=== PATIENT | female | born 1960 | race Caucasian/White ===

== ENCOUNTER 2021-11-06 20:01 | Inpatient (IN) ==
[2021-11-06] MEDS ORDERED: SODIUM CHLORIDE 0.9% 1000ML 1,000 ML IV ONE (20:21)
--- NOTE | 2021-11-06 20:29 | Emergency Department Note ---
Impression & Plan Neutropenia, Thrombocytopenia, Elevated liver enzymes, Flu-like symptoms ED Provider Note NAME: CARMEN SEVILLA AGE: 61 SEX: F : 1960 ARRIVES VIA: Walk-In INFORMANT: [Patient] ED PROVIDER(S): [Ronan Wu MD] CHIEF COMPLAINT: Fever HISTORY OF PRESENT ILLNESS: The patient is a 61-year-old female whose had 5 days of symptoms. She began noticing chills and body aches and a fever of 101-102. She has had a bit of a scratchy throat, no stuffy nose. No shortness of breath or cough. No abdominal pain or urinary complaints. There has been no rash. The patient did take a COVID test that was negative. She had a chest x-ray rate that was negative. She had blood work done today and was told that her white count was low, she was referred to the ER for evaluation. Patient has no history of a recent tick bite. She was prescribed a Z-Beau yesterday, she has taken 2 days of this medication. She has been using Tylenol for her fever. REVIEW OF SYSTEMS: See HPI for pertinent positives and negatives. A total of ten systems were reviewed and were otherwise negative. PMHx/PSHx: See Below SOCIAL HISTORY: See Below. PHYSICAL EXAM: GENERAL: Patient is in no acute distress. HEENT: No acute trauma, normocephalic atraumatic, mucous membranes moist, no nasal congestion, no scleral icterus. NECK: No stridor, no adenopathy, no meningismus, trachea is midline. LUNGS: Clear to auscultation bilaterally, no wheeze, no rhonchi, breath sounds equal. HEART: Without murmurs gallops or rubs, regular rate and rhythm. ABDOMEN: Soft, nontender, bowel sounds positive, no peritonitis. EXTREMITIES: No cyanosis or edema, full range of motion of all the joints without pain or difficulty, no signs for acute trauma. NEUROLOGIC: Oriented x 3, no acute motor or sensory deficits, no focal weakness. SKIN: No rash, no jaundice, no diaphoresis. DIFFERENTIAL DIAGNOSIS: Generalized viral illness, COVID-19, pneumonia, UTI, electrolyte imbalance, anemia, Lyme disease, tickborne illness, malignancy, among others EMERGENCY DEPARTMENT COURSE/PROCEDURES: MEDICAL DECISION MAKING: There is a neutropenia with an ANC of 0.53. Total white count was 1.27. A very mild anemia was noted. Platelet count was low at 82. Potassium somewhat low at 3.1, no renal failure. AST and ALT were both elevated, the bilirubin was normal. Patient appeared to be in a euthyroid state. Respiratory bio fire testing was completely negative. Blood cultures are pending. Anaplasmosis and Babesia smears were negative. I did review the patient's testing performed as an outpatient. Her Lyme disease test was equivocally positive for IgM, negative for IgG. Her urinalysis showed contamination, no infection. Her chest x-ray was clear. She did have anaplasmosis and Babesia testing sent to a reference lab--results pending. The patient presents with flulike symptoms. She is neutropenic and thro mbocytopenic. Here in the ED she received IV saline for hydration, she was given IV doxycycline for antibiotic coverage for the possibility of a tickborne disease. I spoke with hematology, Dr. Tyler. The patient should be hospitalized for further work-up and observation. Viral illness, bone marrow failure, tickborne disease are all possibilities. I spoke with the patient and case loader operator. The on-call hospitalist was consulted. Past Med/Surg History Medical History Asthma Menopause Surgical History H/O hysterectomy with oophorectomy History of cholecystectomy History of tonsillectomy Family History (Updated 01/27/19 @ 15:33 by Fay King LPN) Sister Ulcerative colitis Aunt Crohn's disease Grandmother Stroke Father Myocardial infarction Social History Smoking Status: Never smoker Hx Alcohol Use: Yes (occasionally ) Alcohol type: wine Hx Substance Use: No Preferred Language: Setswana Visual Impairment: No Limitations Hearing Ability: Normal marital status: Current Living Situation: Spouse current occupational status: employed current occupation: [employer] Feels Safe at Home: Yes Childhood Exposure to Second-Hand Smoke: Yes caffeine: Yes (coffee - one cup/day ) Dental Care, Regularly: Yes Physical Activity Frequency: 3-4 Times per Week Physical Activity Frequency Comment: walking Seatbelt Use: always Sunscreen Use: Yes Allergies Allergies Allergy/AdvReac Type Severity Reaction Status Date / Time Penicillins Allergy Verified 02/08/21 15:48 Home Meds Previous Rx's Medication Instructions Recorded calcium carbonate 600 mg-vitamin 1 tab PO BID #180 tabs 12/14/18 D3 5 mcg (200 unit) tablet ferrous sulfate 325 mg (65 mg 325 mg PO DAILY #90 tabs 12/14/18 iron) tablet loratadine 10 mg tablet 10 mg PO DAILY #90 tabs 12/14/18 omega-3 fatty acids 1,250 mg 1,250 mg PO DAILY #90 caps 12/14/18 capsule albuterol sulfate 90 mcg/actuation 2 puffs inhalation Q4H PRN 06/20/19 aerosol inhaler shortness of breath or wheezing #18 grams azithromycin 250 mg tablet See Rx Instructions PO .COMPLEX #6 11/05/21 tabs Results & Data (ED) Vital Signs Vital Signs - 24 hr 11/06/21 20:03 11/06/21 21:44 Temperature 36.7 C Temperature Source Temporal Artery Scan Pulse Rate 80 Pulse Rate [Finger] 65 Respiratory Rate 20 17 Respiratory Effort / Characteristics Non-Labored Spontaneous Non-Labored Spontaneous Respiratory Depth Normal Normal Respiratory Pattern Regular Blood Pressure 121/76 Blood Pressure [Left Arm] 99/62 L Blood Pressure Mean 91 Blood Pressure Mean [Left Arm] 74 Pulse Oximetry 98 98 Oxygen Delivery Method Room Air Room Air Sepsis Recent Fever Within 48 Hours No Sepsis New/Unexplained Change in Mental Status No Sepsis Action Taken by Nursing No Action Required Home Medications Current Medication List: was personally reviewed by me Laboratory Data Attestation: I reviewed the patient's lab results. Result diagrams: 11/06/21 20:30 11/06/21 20:30 Lab Results 11/06/21 11/06/21 11/06/21 Range/Units 20:30 20:30 20:30 WBC 1.27 L (4.8-10.8) K/ul RBC 3.72 L (3.93-5.22) M/uL Hgb 11.2 L (12.0-16.0) g/dl Hct 31.5 L (34.1-44.9) % MCV 84.7 (80.0-100.0) fL MCH 30.1 (25.0-34.0) pg MCHC 35.6 (32.0-36.0) g/dL RDW Std Deviation 35.8 L (36.4-46.3) fL RDW Coeff of Samantha 11.6 (11.5-14.5) % Plt Count 82 L (130-400) K/uL MPV 11.8 (9.4-12.3) fL Immature Gran % (Auto) 1.6 % Neut % (Auto) 41.7 % Lymph % (Auto) 44.1 % Woodson % (Auto) 11.8 % Eos % (Auto) 0.0 % Baso % (Auto) 0.8 % Neut # (Auto) 0.53 L* (1.4-6.5) K/uL Lymph # (Auto) 0.56 L (1.2-3.4) K/uL Woodson # (Auto) 0.15 L (0.24-0.82) K/uL Eos # (Auto) 0.00 (0-0.50) K/uL Baso # (Auto) 0.01 (0-0.2) K/uL Immature Gran # (Auto) 0.02 (0.00-0.02) K/uL Platelet Estimate Decreased L (Normal) Giant Platelets 1+ Sodium 140 (136-145) mmol/L Potassium 3.1 L (3.5-5.1) mmol/L Chloride 106 (98-107) mmol/L Carbon Dioxide 24 (21-32) mmol/L Anion Gap 10 (3-11) BUN 11 (6-23) mg/dl Creatinine 0.55 L (0.6-1.2) mg/dl Est Cr Clr Drug Dosing 85.3 ml/min Est GFR ( Amer) 116.5 ml/min Est GFR (Non-Af Amer) 100.5 ml/min BUN/Creatinine Ratio 20.0 (10-20) Glucose 97 (70-99(Fasting)) mg/dl Calcium 8.4 L (8.5-10.1) mg/dl Total Bilirubin 0.6 (0.2-1.0) mg/dl AST 153 H (13-39) U/L ALT 136 H (7-52) U/L Alkaline Phosphatase 86 (34-104) U/L Total Protein 6.5 (6.0-8.3) gm/dl Albumin 3.9 (3.4-5.0) gm/dl Globulin 2.6 (2.5-4.0) gm/dl Albumin/Globulin Ratio 1.5 (0.9-2) TSH (0.300-4.500) uIu/ml Adenovirus (PCR) (NotDetected) Anaplasma Smear See Comment Babesia Smear See Comment B. pertussis DNA (PCR) (NotDetected) B.parapertussis DNA PCR (NotDetected) C. pneumoniae DNA (PCR) (NotDetected) Coronavirus OC43 (PCR) (NotDetected) Coronavirus HKU1 (PCR) (NotDetected) Coronavirus 229E (PCR) (NotDetected) SARS-CoV-2 (PCR) (NotDetected) Coronavirus NL63 (PCR) (NotDetected) Human Metapneumovir PCR (NotDetected) Influenza Type A (PCR) (NotDetected) Influenza Type B (PCR) (NotDetected) M. pneumoniae (PCR) (NotDetected) Parainfluenza 1 (PCR) (NotDetected) Parainfluenza 2 (PCR) (NotDetected) Parainfluenza 3 (PCR) (NotDetected) Parainfluenza 4 (PCR) (NotDetected) RSV (PCR) (NotDetected) Entero/Rhino (PCR) (NotDetected) 11/06/21 11/06/21 Range/Units 20:30 20:42 WBC (4.8-10.8) K/ul RBC (3.93-5.22) M/uL Hgb (12.0-16.0) g/dl Hct (34.1-44.9) % MCV (80.0-100.0) fL MCH (25.0-34.0) pg MCHC (32.0-36.0) g/dL RDW Std Deviation (36.4-46.3) fL RDW Coeff of Samantha (11.5-14.5) % Plt Count (130-400) K/uL MPV (9.4-12.3) fL Immature Gran % (Auto) % Neut % (Auto) % Lymph % (Auto) % Woodson % (Auto) % Eos % (Auto) % Baso % (Auto) % Neut # (Auto) (1.4-6.5) K/uL Lymph # (Auto) (1.2-3.4) K/uL Woodson # (Auto) (0.24-0.82) K/uL Eos # (Auto) (0-0.50) K/uL Baso # (Auto) (0-0.2) K/uL Immature Gran # (Auto) (0.00-0.02) K/uL Platelet Estimate (Normal) Giant Platelets Sodium (136-145) mmol/L Potassium (3.5-5.1) mmol/L Chloride (98-107) mmol/L Carbon Dioxide (21-32) mmol/L Anion Gap (3-11) BUN (6-23) mg/dl Creatinine (0.6-1.2) mg/dl Est Cr Clr Drug Dosing ml/min Est GFR ( Amer) ml/min Est GFR (Non-Af Amer) ml/min BUN/Creatinine Ratio (10-20) Glucose (70-99(Fasting)) mg/dl Calcium (8.5-10.1) mg/dl Total Bilirubin (0.2-1.0) mg/dl AST (13-39) U/L ALT (7-52) U/L Alkaline Phosphatase (34-104) U/L Total Protein (6.0-8.3) gm/dl Albumin (3.4-5.0) gm/dl Globulin (2.5-4.0) gm/dl Albumin/Globulin Ratio (0.9-2) TSH 1.710 (0.300-4.500) uIu/ml Adenovirus (PCR) Not Detected (NotDetected) Anaplasma Smear Babesia Smear B. pertussis DNA (PCR) Not Detected (NotDetected) B.parapertussis DNA PCR Not Detected (NotDetected) C. pneumoniae DNA (PCR) Not Detected (NotDetected) Coronavirus OC43 (PCR) Not Detected (NotDetected) Coronavirus HKU1 (PCR) Not Detected (NotDetected) Coronavirus 229E (PCR) Not Detected (NotDetected) SARS-CoV-2 (PCR) Not Detected (NotDetected) Coronavirus NL63 (PCR) Not Detected (NotDetected) Human Metapneumovir PCR Not Detected (NotDetected) Influenza Type A (PCR) Not Detected (NotDetected) Influenza Type B (PCR) Not Detected (NotDetected) M. pneumoniae (PCR) Not Detected (NotDetected) Parainfluenza 1 (PCR) Not Detected (NotDetected) Parainfluenza 2 (PCR) Not Detected (NotDetected) Parainfluenza 3 (PCR) Not Detected (NotDetected) Parainfluenza 4 (PCR) Not Detected (NotDetected) RSV (PCR) Not Detected (NotDetected) Entero/Rhino (PCR) Not Detected (NotDetected) Administered Medications Discontinued Medications Sodium Chloride (Nss 1000ml) 1,000 mls @ 999 mls/hr IV .Q1H1M ONE Stop: 11/06/21 21:21 Last Infusion: 11/06/21 21:59 Dose: 0 mls/hr Documented By: Admin: 11/06/21 20:40 Dose: 999 mls/hr Documented By: SONIA Discharge Plan Visit Data Chief Complaint: Fever Stated Complaint: FEVER, DR REF OVER ED Provider: Ronan Wu Discharge Problem: Neutropenia, Thrombocytopenia, Elevated liver enzymes, Flu-like symptoms Patient Disposition: Admitted As Inpatient Condition: Fair Forms Stand Alone Forms: [facility] Prescriptions Prescriptions: No Action albuterol sulfate 90 mcg/actuation HFA aerosol inhaler 2 puffs inhalation Q4H PRN (Reason: shortness of breath or wheezing) Qty: 18 11RF azithromycin 250 mg tablet See Rx Instructions PO .COMPLEX Qty: 6 0RF Rx Instructions: For 250 mg dose pack: take 500 mg today (day 1), then 250 mg for 4 days (days 2-5) PO calcium carbonate-vitamin D3 600 mg(1,500mg) -200 unit tablet 1 tab PO BID Qty: 180 3RF ferrous sulfate 325 mg (65 mg iron) tablet 325 mg PO DAILY Qty: 90 3RF loratadine 10 mg tablet 10 mg PO DAILY Qty: 90 3RF omega-3 fatty acids 1,250 mg capsule 1,250 mg PO DAILY Qty: 90 3RF Referrals Referrals: Chilango Oropeza DO [Primary Care Provider] - : Neutropenia Qualifiers: Neutropenia type: unspecified Qualified Code(s): D70.9 - Neutropenia, unspecified
[2021-11-06 21:27] LABS: Basophils # (auto) 0.01 K/uL (0-0.2); Basophils % (auto) 0.8 %; Giant Platelets 1+; Hematocrit (blood only) 31.5 % (34.1-44.9); Hemoglobin 11.2 g/dl (12.0-16.0); Immature Granulocytes # (auto) 0.02 K/uL (0.00-0.02); Immature Granulocytes % (auto) 1.6 %; Lymphocytes # (auto) 0.56 K/uL (1.2-3.4); Lymphocytes % (auto) 44.1 %; Mean Corpuscular Hemoglobin 30.1 pg (25.0-34.0); Mean Corpuscular Hgb Conc 35.6 g/dL (32.0-36.0); Mean Corpuscular Volume 84.7 fL (80.0-100.0); Mean Platelet Volume 11.8 fL (9.4-12.3); Monocytes # (auto) 0.15 K/uL (0.24-0.82); Monocytes % (auto) 11.8 %; Neutrophils # (auto) 0.53 K/uL (1.4-6.5); Neutrophils % (auto) 41.7 %; Platelet Count 82 K/uL (130-400); Platelet Estimate Decreased (Normal); RDW Coefficient of Variation 11.6 % (11.5-14.5); RDW Standard Deviation 35.8 fL (36.4-46.3); Red Blood Count 3.72 M/uL (3.93-5.22); White Blood Count 1.27 K/ul (4.8-10.8)
[2021-11-06 21:29] LABS: Albumin Globulin Ratio 1.5 (0.9-2); Albumin Level 3.9 gm/dl (3.4-5.0); Bilirubin,Total 0.6 mg/dl (0.2-1.0); Calcium 8.4 mg/dl (8.5-10.1); Creatinine Clr Calc Pharmacy 85.3 ml/min; Est GFR (African American) 116.5 ml/min; Est GFR (Non-African American) 100.5 ml/min; Globulin 2.6 gm/dl (2.5-4.0); Potassium 3.1 mmol/L (3.5-5.1); Total Protein 6.5 gm/dl (6.0-8.3)
[2021-11-06 21:41] LABS: Adenovirus PCR Not Detected (NotDetected); Bordetella parapertussis PCR Not Detected (NotDetected); Bordetella pertussis PCR Not Detected (NotDetected); Chlamydia pneumoniae PCR Not Detected (NotDetected); Coronavirus 229E PCR Not Detected (NotDetected); Coronavirus CoV-2 (COVID19)PCR Not Detected (NotDetected); Coronavirus HKU1 PCR Not Detected (NotDetected); Coronavirus NL63 PCR Not Detected (NotDetected); Coronavirus OC43PCR Not Detected (NotDetected); Human Metapneumovirus PCR Not Detected (NotDetected); Influenza A PCR Not Detected (NotDetected); Influenza B PCR Not Detected (NotDetected); Mycoplasma pneumoniae PCR Not Detected (NotDetected); Parainfluenza Virus 1 PCR Not Detected (NotDetected); Parainfluenza Virus 2 PCR Not Detected (NotDetected); Parainfluenza Virus 3 PCR Not Detected (NotDetected); Parainfluenza Virus 4 PCR Not Detected (NotDetected); Respiratory Syncytial VirusPCR Not Detected (NotDetected); Rhinovirus/Enterovirus PCR Not Detected (NotDetected)
[2021-11-06] MEDS ORDERED: DOXYCYCLINE HYCLATE 100 MG in DEXTROSE 5% 100 ML IV STA (21:56)
--- NOTE | 2021-11-06 22:17 | History & Physical Report ---
Date of Service November 06, 2021 Assessment & Plan (1) Flu-like symptoms: Plan: 61yo female with a history of asthma presents with a five-day history of fever, chills, muscle aches, and headache, who was then found with pancytopenia, transaminitis, and hypokalemia. Moderate neutropenia, moderate thrombocytopenia, mild anemia Symptoms and labs suspicious for tickborne vs viral illness, though differential includes malignancy, others; unfortunately, no prior labs for comparison; no signs/symptoms of active bleeding ANC 529 CXR negative, ESR wnl, no signs or symptoms of active bleeding; Lyme IgM equivocal, Lyme IgG pending, babesia PCR negative, anaplasma smear negative, covid negative Pending labs: blood culture, peripheral smear, procalcitonin, hepatitis panel, Lyme IgG, B12, folate, copper, serum iron, transferrin, A1c, lipid profile Hematology consulted, recommendations appreciated Due to high suspicion for tickborne illness, continue empiric doxycycline started in the ED; Babesia PCR negative, will hold off on adding atovaquone at this time LR @ 80mL/hr (x1 bag ordered) APAP 1000mg q8h prn fever or pain Home ferrous sulfate changed from daily to q48hr Trend daily CBC, CMP, PT/INR, magnesium, phosphorous Hypokalemia Potassium on admission 3.1 EKG pending Will replete with KCl 20mEq PO q2h (x4 doses) with repeat BMP in AM Transaminitis Admission labs notable for elevated AST (153) and ALT (136); Tbili and alk phos wnl; no abdominal tenderness on exam, no recent abdominal pain, nausea, vomiting, or diarrhea Suspect secondary to tickborne vs viral illness RUQ ultrasound ordered Trend daily CMP Asthma, seasonal allergies Well-controlled; patient has not needed her albuterol inhaler in months Continue home loratidine, albuterol prn SOB/wheezing ordered FEN: regular diet, LR @ 80mL/hr (x1 bag ordered) Code status: full code DVT ppx: SCDs Consults: hematology Dispo: med/surg (2) Pancytopenia: (3) Fever: (4) Elevated liver enzymes: (5) Hypokalemia: (6) Asthma: History of Present Illness Primary Care Provider: Chilango Oropeza DO 61yo female with a history of asthma presents with a five-day history of fever, chills, muscle aches, and headache. Symptoms began gradually. Patient has had an intermittent fever which resolves with tylenol; Tmax 102.8. Patient saw her PCP two days ago (on 11/04) for the above symptoms; PCP ordered a covid test, and when that was negative, ordered a CXR which was also negative. Patient was prescribed azithromycin due to suspicion for atypical pneumonia, of which she has taken 500mg yesterday and 250mg this morning. Symptoms have not improved. Outpatient labs obtained earlier in the day were notable for leukopenia (1.52), mild anemia (11.9), and thrombocytopenia (77); patient was referred to the ED as a result. Patient notes her symptoms are relatively unchanged from the past few days. Headache is mild, currently only a 2/10 to 3/10. Patient denies vision changes, CP, palpitations, SOB, edema, abdominal pain, nausea, vomiting, dysuria, hematochezia, lightheadedness, dizziness, numbness, tingling, or other symptoms. Denies recent illness prior to the past week, denies recent travel. Denies known tick bites, though [place] and has had some possible exposures over the past few weeks. Denies unintentional weight loss. Patient does report a lifetime history of easy bruising, but no history of [id number] bleeding. No personal history of malignancy, though patient does note a family history of multiple myeloma (father), and an aunt with "a cancer of the lymph nodes"; no other family history of malignancy. Patient suspects her mother might have rheumatoid arthritis but is unaware of any other family history of autoimmune conditions. Patient drinks alcohol 2-3 times per month, about two glasses of wine each time. Patient is a never-smoker and denies other recreational substance use. Denies herbal supplement use. Upon arrival to the ED, vitals were stable, patient was afebrile, and SpO2 was adequate on room air. Initial labs were notable for moderate leukopenia (1.27), moderate neutropenia (ANC 529), mild anemia (11.2), thrombocytopenia (82), hypokalemia (3.1), and elevations in AST (153) and ALT (136). Serum magnesium, Tbili, alk phos, INR, ESR, and TSH all normal. In the ED, patient was given NSS bolu 1L (x1) and started on empiric doxycycline. Surrogate decision-maker in case of an emergency: Sohail Vaughan (cell: [phone]) Allergies Allergy/AdvReac Type Severity Reaction Status Date / Time Penicillins Allergy Unknown Verified 11/06/21 23:09 Home Medications Medication Instructions Recorded Confirmed Type ferrous sulfate 325 mg (65 mg 325 mg PO DAILY #90 tabs 12/14/18 11/06/21 Rx iron) tablet loratadine 10 mg tablet 10 mg PO DAILY #90 tabs 12/14/18 11/06/21 Rx azithromycin 250 mg tablet See Rx Instructions PO .COMPLEX #6 11/05/21 11/06/21 Rx tabs acetaminophen 500 mg tablet 1,000 mg PO Q6 PRN Fever 11/06/21 11/06/21 History (Tylenol Extra Strength) albuterol sulfate 90 mcg/actuation 2 puff inhalation Q6H PRN 11/06/21 11/06/21 History aerosol inhaler (Ventolin HFA) Shortness Of Breath Or Wheezing ascorbic acid (vitamin C) 250 mg 500 mg PO DAILY 11/06/21 11/06/21 History tablet (Vitamin C) calcium carbonate 600 mg-vitamin 1 tab PO DAILY 11/06/21 11/06/21 History D3 5 mcg (200 unit) tablet multivitamin 1 tab PO DAILY 11/06/21 11/06/21 History omega-3 fatty acids 1,250 mg 2,500 mg PO QAM 11/06/21 11/06/21 History capsule Past Med/Surg History Medical History Asthma Menopause Surgical History H/O hysterectomy with oophorectomy History of cholecystectomy History of tonsillectomy Family History (Updated 01/27/19 @ 15:33 by Fay King LPN) Sister Ulcerative colitis Aunt Crohn's disease Grandmother Stroke Father Myocardial infarction Social History Smoking Status: Never smoker Second Hand Exposure: No; Do You Dip or Chew Tobacco: No; Tobacco Cessation Education Requested by Patient: No Hx Alcohol Use: Yes Alcohol type: wine Hx Substance Use: No Preferred Language: Ukrainian Communication Ability: Effective Visual Impairment: No Limitations Hearing Ability: Normal Quality Process Auditor Required: No Beliefs That Will Affect Care: None marital status: Current Living Situation: Spouse current occupational status: employed current occupation: [employer] Other Information That Helps Us Care for You: No Feels Safe at Home: Yes Safety Concerns: Feels Safe At This Time Childhood Exposure to Second-Hand Smoke: Yes caffeine: Yes (coffee - one cup/day ) Dental Care, Regularly: Yes Physical Activity Frequency: 3-4 Times per Week Physical Activity Frequency Comment: walking Seatbelt Use: always Sunscreen Use: Yes Assistive Devices: None Physical Exam Physical Exam: Constitutional: well-appearing, no acute distress HEENT: NCAT, no conjunctival injection, no scleral icterus, MMM CV: regular rhythm, no murmur appreciated, extremities well-perfused, no LE edema Resp: CTABL, no wheezes/rales/rhonchi appreciated, no increased work of breathing GI: soft, nondistended, nontender, BS normoactive Skin: 6cm x 6cm ecchymosis appreciated on medial left lower extremity; no petechiae or purpura appreciated Neuro: alert, oriented, no focal neurologic deficit appreciated Results & Data Results & Data ([facility]) Vital Signs (Past 12 Hours) Vital Signs Temp Pulse Pulse Resp BP BP Pulse Ox 11/06/21 21:44 65 17 99/62 L 98 11/06/21 20:03 36.7 C 80 20 121/76 98 O2 Del Method 11/06/21 21:44 Room Air 11/06/21 20:03 Room Air Supervising Physician Co-Signing Physician Notes Attending addendum: I have physically seen this patient, have supervised the medical residents activities, and agree with the H&P unless as otherwise noted. Assessment and Plan: Neutropenic fever- Unclear etiology at this time Outpatient work-up: Lyme IgM equivocal, Lyme IgG pending, Babesia PCR negative, anaplasmosis smear negative. COVID-19 negative We will treat empirically with ceftriaxone IV and doxycycline IV Pending laboratories to be followed: Blood culture, peripheral smear, procalcitonin, hepatitis panel, Lyme IgG, B12, folate, copper, serum iron, transferrin, A1c and lipid profile LR at 80 mils per hour Hypokalemia- Potassium 3.1 Give oral dosing and recheck laboratories in a.m. Transaminitis- May be secondary to tickborne/viral illness Check acute hepatitis profile Right upper quadrant ultrasound ordered and will be followed Remaining orders and notations as noted Resident Activity Tracking Resident Involvement: Resident Care Provided and Pharmacognosist Coverage Note Care Provided: Adult Hospital Medicine
[2021-11-06] MEDS ORDERED: MELATONIN 3 MG TAB PO PRN (22:32)
[2021-11-06] MEDS: POTASSIUM CHLORIDE CRTAB 20 MEQ TABCR PO SCH (23:38)
[2021-11-06 23:39] LABS: Fibrinogen 345 mg/dl (184-400)
[2021-11-06 23:40] LABS: Prothrombin Time 10.4 Seconds (9.0-12.0)
[2021-11-07] MEDS ORDERED: ACETAMINOPHEN 500 MG TAB PO PRN (00:58)
[2021-11-07] MEDS ORDERED: ALBUTEROL HFA 8 GM INHALER INH PRN (00:58)
[2021-11-07] MEDS ORDERED: LACTATED RINGER'S 1,000 ML IV SCH (00:58)
[2021-11-07] MEDS: POTASSIUM CHLORIDE CRTAB 20 MEQ TABCR PO SCH ×3 (01:44→06:00)
[2021-11-07 06:41] LABS: Hemoglobin 11.2 g/dl (12.0-16.0); Mean Platelet Volume 11.9 fL (9.4-12.3); Platelet Count 92 K/uL (130-400); White Blood Count 1.54 K/ul (4.8-10.8)
[2021-11-07 06:48] LABS: INR 0.9 (0.9-1.1); Prothrombin Time 10.1 Seconds (9.0-12.0)
[2021-11-07] MEDS ORDERED: FERROUS SULFATE 325 MG TAB PO SCH (07:00)
[2021-11-07 07:19] LABS: Folate (Folic Acid) > 22.30 ng/ml (>5.38)
[2021-11-07 07:20] LABS: Vitamin B12 895 pg/ml (180-914)
[2021-11-07 07:22] LABS: Albumin Globulin Ratio 1.5 (0.9-2); Albumin Level 3.8 gm/dl (3.4-5.0); Bilirubin,Total 0.6 mg/dl (0.2-1.0); Calcium 8.3 mg/dl (8.5-10.1); Creatinine Clr Calc Pharmacy 87.1 ml/min; Est GFR (African American) 117.2 ml/min; Est GFR (Non-African American) 101.1 ml/min; Globulin 2.6 gm/dl (2.5-4.0); Magnesium 1.8 mg/dl (1.7-2.4); Phosphorus 2.4 mg/dl (2.5-4.9); Potassium 3.5 mmol/L (3.5-5.1); Total Protein 6.4 gm/dl (6.0-8.3)
[2021-11-07 07:27] LABS: Estimated Average Glucose 120 mg/dl; Hemoglobin A1C 5.8 % (4.5-5.6)
[2021-11-07 07:45] LABS: Mean Corpuscular Hemoglobin 29.9 pg (25.0-34.0); Mean Corpuscular Volume 85.3 fL (80.0-100.0); RDW Coefficient of Variation 11.8 % (11.5-14.5); RDW Standard Deviation 36.6 fL (36.4-46.3); Red Blood Count 3.75 M/uL (3.93-5.22)
[2021-11-07 07:47] LABS: ALC (manual) 0.77 K/uL (1.2-3.4); ANC (manual) 0.72 K/uL (1.4-6.5); Lymphocytes # (manual) 0.57 K/uL (1.2-3.4); Lymphocytes % (manual) 37 %; Monocytes # (manual) 0.05 K/uL (0.24-0.82); Monocytes % (manual) 3 %; Neutrophils # (manual) 0.72 K/uL (1.4-6.5); Neutrophils % (manual) 47 %; RBC Morphology Unremarkable; Reactive Lymphocytes % (manual) 13 %
--- NOTE | 2021-11-07 07:56 | Ultrasound Report ---
ULTRASOUND RIGHT UPPER QUADRANT ABDOMEN CLINICAL HISTORY: Right upper quadrant abdominal pain. Elevated hepatic transaminases. COMPARISON STUDY: No priors. TECHNIQUE: Real-time, grayscale, and color flow sonography of the right upper quadrant of the abdomen was performed. Images are reviewed in the transverse and longitudinal planes. FINDINGS: Liver: The liver is normal in size and echotexture. There is minimal intrahepatic biliary ductal dila tation. The main portal vein is patent. Gallbladder: The gallbladder is surgically absent. The common bile duct measures up to 0.4 cm in diam eter. A 5 mm cystic structure is noted in the gallbladder fossa, possibly representing a tiny cystic duct remnant. Pancreas: Visualized portions of the pancreatic head and body are normal in appearance. The splenic v ein is patent. Right kidney: Survey images of the right kidney demonstrate normal size and echotexture. There is no hydronephrosis. Ascites: None. IMPRESSION: Unremarkable sonographic examination of the right upper quadrant noting status post saira cystectomy. ACT 112: Negative or not required by law. Electronically signed by: Ronan Claros M.D. 11/07/2021 7:54 AM
[2021-11-07] MEDS: LORATADINE 10 MG TAB PO SCH (08:33)
[2021-11-07] MEDS: DOXYCYCLINE HYCLATE 100 MG in DEXTROSE 5% 100 ML IV SCH ×2 (10:18→21:16)
[2021-11-07] MEDS: ENOXAPARIN INJ 40 MG/0.4 ML SYR SQ SCH (10:23)
--- NOTE | 2021-11-07 17:54 | Hospitalist Progress Note ---
Date of Service November 07, 2021 Assessment & Plan (1) Fever: Plan: Entire picture appears to be either viral or tickbornecontinue Doxy; await studies; Ehrlichia PCR added; CMV PCR (2) Neutropenia: Plan: Viral versus tickbornefollow, ANC more than 500 (3) Thrombocytopenia: Plan: Same as #2 as far as etiologyfollow (4) Elevated liver enzymes: Plan: Same as #1 as far as etiologyfollow Plan No other acute issues identified No evidence of asthma exacerbation Admission and Anticipated Discharge Date Admission Date: November 06, 2021 Subjective Follow-up of presentation with fever, leukopeniaclinically doing much better Physical Exam 2 Physical Exam: Constitutional and general: No acute distress, looks biologic age Head and face: No puffiness, atraumatic Eyes: No scleral icterus, extraocular movements normal Neck: Supple, no JVD Musculoskeletal: No acute joint swelling, no bony abnormalities Skin/dermatologic/integument: No rash, no purpura Hematologic and lymphatic: pallor +, no petechia Gastrointestinal/abdomen: Nondistended, soft, nonacute Neurologic: Cranial nerves intact, nonfocal Psychiatry: Awake, alert, pleasant, communicative Cardiovascular: Heart rhythm regular, no rub, no murmur, no gallop Respiratory: Chest movements equal, no use of accessory muscles, no adventitious sounds Extremities: No edema, no cyanosis Results & Data Results & Data ([facility]) Vital Signs (Past 12 Hours) Vital Signs Temp Pulse Resp BP Pulse Ox 11/07/21 16:01 36.8 C 67 16 104/67 99 11/07/21 07:07 36.7 C 80 16 101/64 97 Laboratory Results Laboratory Results - last 24 hr 11/06/21 11/06/21 11/06/21 20:30 20:30 20:30 WBC 1.27 L RBC 3.72 L Hgb 11.2 L Hct 31.5 L MCV 84.7 MCH 30.1 MCHC 35.6 RDW Std Deviation 35.8 L RDW Coeff of Samantha 11.6 Plt Count 82 L MPV 11.8 Immature Gran % (Auto) 1.6 Neut % (Auto) 41.7 Lymph % (Auto) 44.1 [place] % (Auto) 11.8 Eos % (Auto) 0.0 Baso % (Auto) 0.8 Neut # (Auto) 0.53 L* Lymph # (Auto) 0.56 L [place] # (Auto) 0.15 L Eos # (Auto) 0.00 Baso # (Auto) 0.01 Immature Gran # (Auto) 0.02 Neutrophils % (Manual) Lymphocytes % (Manual) Reactive Lymphs % (Man) Monocytes % (Manual) Neutrophils # (Manual) Total Absolute Neuts Lymphocytes # (Manual) Reactive Lymphs # Total Abs Lymphocytes Monocytes # (Manual) Platelet Estimate Decreased L Giant Platelets 1+ RBC Morphology Peripher Smr Path Cons ESR PT INR Fibrinogen Sodium 140 Potassium 3.1 L Chloride 106 Carbon Dioxide 24 Anion Gap 10 BUN 11 Creatinine 0.55 L Est Cr Clr Drug Dosing 85.3 Est GFR ( Amer) 116.5 Est GFR (Non-Af Amer) 100.5 BUN/Creatinine Ratio 20.0 Glucose 97 Estimat Average Glucose Hemoglobin A1c Calcium 8.4 L Ionized Calcium Phosphorus Magnesium Iron Transferrin Total Bilirubin 0.6 AST 153 H ALT 136 H Alkaline Phosphatase 86 Total Protein 6.5 Albumin 3.9 Globulin 2.6 Albumin/Globulin Ratio 1.5 Triglycerides Cholesterol LDL Cholesterol, Calc VLDL Cholesterol, Calc HDL Cholesterol Cholesterol/HDL Ratio Vitamin B12 Folate Procalcitonin TSH Serum Copper Adenovirus (PCR) Anaplasma Smear See Comment Babesia Smear See Comment B. pertussis DNA (PCR) B.parapertussis DNA PCR C. pneumoniae DNA (PCR) Coronavirus OC43 (PCR) Coronavirus HKU1 (PCR) Coronavirus 229E (PCR) SARS-CoV-2 (PCR) Coronavirus NL63 (PCR) E.chaffeensis DNA (PCR) Hepatitis A IgM Ab Hep Bs Antigen Hep Bs Ag Confirmation Hep B Core IgM Ab Hepatitis C Antibody Hepatitis C Ab (EIA) Hep C Ab Signal/Cutoff Human Metapneumovir PCR Influenza Type A (PCR) Influenza Type B (PCR) M. pneumoniae (PCR) Parainfluenza 1 (PCR) Parainfluenza 2 (PCR) Parainfluenza 3 (PCR) Parainfluenza 4 (PCR) RSV (PCR) Entero/Rhino (PCR) 11/06/21 11/06/21 11/06/21 20:30 20:42 22:58 WBC RBC Hgb Hct MCV MCH MCHC RDW Std Deviation RDW Coeff of Samantha Plt Count MPV Immature Gran % (Auto) Neut % (Auto) Lymph % (Auto) [place] % (Auto) Eos % (Auto) Baso % (Auto) Neut # (Auto) Lymph # (Auto) [place] # (Auto) Eos # (Auto) Baso # (Auto) Immature Gran # (Auto) Neutrophils % (Manual) Lymphocytes % (Manual) Reactive Lymphs % (Man) Monocytes % (Manual) Neutrophils # (Manual) Total Absolute Neuts Lymphocytes # (Manual) Reactive Lymphs # Total Abs Lymphocytes Monocytes # (Manual) Platelet Estimate Giant Platelets RBC Morphology Peripher Smr Path Cons ESR PT INR Fibrinogen 345 Sodium Potassium Chloride Carbon Dioxide Anion Gap BUN Creatinine Est Cr Clr Drug Dosing Est GFR ( Amer) Est GFR (Non-Af Amer) BUN/Creatinine Ratio Glucose Estimat Average Glucose Hemoglobin A1c Calcium Ionized Calcium Phosphorus Magnesium Iron Transferrin Total Bilirubin AST ALT Alkaline Phosphatase Total Protein Albumin Globulin Albumin/Globulin Ratio Triglycerides Cholesterol LDL Cholesterol, Calc VLDL Cholesterol, Calc HDL Cholesterol Cholesterol/HDL Ratio Vitamin B12 Folate Procalcitonin TSH 1.710 Serum Copper Adenovirus (PCR) Not Detected Anaplasma Smear Babesia Smear B. pertussis DNA (PCR) Not Detected B.parapertussis DNA PCR Not Detected C. pneumoniae DNA (PCR) Not Detected Coronavirus OC43 (PCR) Not Detected Coronavirus HKU1 (PCR) Not Detected Coronavirus 229E (PCR) Not Detected SARS-CoV-2 (PCR) Not Detected Coronavirus NL63 (PCR) Not Detected E.chaffeensis DNA (PCR) Hepatitis A IgM Ab Hep Bs Antigen Hep Bs Ag Confirmation Hep B Core IgM Ab Hepatitis C Antibody Hepatitis C Ab (EIA) Hep C Ab Signal/Cutoff Human Metapneumovir PCR Not Detected Influenza Type A (PCR) Not Detected Influenza Type B (PCR) Not Detected M. pneumoniae (PCR) Not Detected Parainfluenza 1 (PCR) Not Detected Parainfluenza 2 (PCR) Not Detected Parainfluenza 3 (PCR) Not Detected Parainfluenza 4 (PCR) Not Detected RSV (PCR) Not Detected Entero/Rhino (PCR) Not Detected 11/06/21 11/06/21 11/06/21 22:58 22:58 22:58 WBC RBC Hgb Hct MCV MCH MCHC RDW Std Deviation RDW Coeff of Samantha Plt Count MPV Immature Gran % (Auto) Neut % (Auto) Lymph % (Auto) [place] % (Auto) Eos % (Auto) Baso % (Auto) Neut # (Auto) Lymph # (Auto) [place] # (Auto) Eos # (Auto) Baso # (Auto) Immature Gran # (Auto) Neutrophils % (Manual) Lymphocytes % (Manual) Reactive Lymphs % (Man) Monocytes % (Manual) Neutrophils # (Manual) Total Absolute Neuts Lymphocytes # (Manual) Reactive Lymphs # Total Abs Lymphocytes Monocytes # (Manual) Platelet Estimate Giant Platelets RBC Morphology Peripher Smr Path Cons Cancelled ESR 3 PT 10.4 INR 1.0 Fibrinogen Sodium Potassium Chloride Carbon Dioxide Anion Gap BUN Creatinine Est Cr Clr Drug Dosing Est GFR ( Amer) Est GFR (Non-Af Amer) BUN/Creatinine Ratio Glucose Estimat Average Glucose Hemoglobin A1c Calcium Ionized Calcium Phosphorus Magnesium Iron Transferrin Total Bilirubin AST ALT Alkaline Phosphatase Total Protein Albumin Globulin Albumin/Globulin Ratio Triglycerides Cholesterol LDL Cholesterol, Calc VLDL Cholesterol, Calc HDL Cholesterol Cholesterol/HDL Ratio Vitamin B12 Folate Procalcitonin TSH Serum Copper Adenovirus (PCR) Anaplasma Smear Babesia Smear B. pertussis DNA (PCR) B.parapertussis DNA PCR C. pneumoniae DNA (PCR) Coronavirus OC43 (PCR) Coronavirus HKU1 (PCR) Coronavirus 229E (PCR) SARS-CoV-2 (PCR) Coronavirus NL63 (PCR) E.chaffeensis DNA (PCR) Hepatitis A IgM Ab Hep Bs Antigen Hep Bs Ag Confirmation Hep B Core IgM Ab Hepatitis C Antibody Hepatitis C Ab (EIA) Hep C Ab Signal/Cutoff Human Metapneumovir PCR Influenza Type A (PCR) Influenza Type B (PCR) M. pneumoniae (PCR) Parainfluenza 1 (PCR) Parainfluenza 2 (PCR) Parainfluenza 3 (PCR) Parainfluenza 4 (PCR) RSV (PCR) Entero/Rhino (PCR) 11/06/21 11/06/21 11/06/21 22:58 22:58 22:58 WBC RBC Hgb Hct MCV MCH MCHC RDW Std Deviation RDW Coeff of Samantah Plt Count MPV Immature Gran % (Auto) Neut % (Auto) Lymph % (Auto) [place] % (Auto) Eos % (Auto) Baso % (Auto) Neut # (Auto) Lymph # (Auto) [place] # (Auto) Eos # (Auto) Baso # (Auto) Immature Gran # (Auto) Neutrophils % (Manual) Lymphocytes % (Manual) Reactive Lymphs % (Man) Monocytes % (Manual) Neutrophils # (Manual) Total Absolute Neuts Lymphocytes # (Manual) Reactive Lymphs # Total Abs Lymphocytes Monocytes # (Manual) Platelet Estimate Giant Platelets RBC Morphology Peripher Smr Path Cons ESR PT INR Fibrinogen Sodium Potassium Chloride Carbon Dioxide Anion Gap BUN Creatinine Est Cr Clr Drug Dosing Est GFR ( Amer) Est GFR (Non-Af Amer) BUN/Creatinine Ratio Glucose Estimat Average Glucose Hemoglobin A1c Calcium Ionized Calcium Phosphorus Magnesium 1.8 Iron Transferrin Total Bilirubin AST ALT Alkaline Phosphatase Total Protein Albumin Globulin Albumin/Globulin Ratio Triglycerides Cholesterol LDL Cholesterol, Calc VLDL Cholesterol, Calc HDL Cholesterol Cholesterol/HDL Ratio Vitamin B12 Folate Procalcitonin 0.46 TSH Serum Copper Adenovirus (PCR) Anaplasma Smear Babesia Smear B. pertussis DNA (PCR) B.parapertussis DNA PCR C. pneumoniae DNA (PCR) Coronavirus OC43 (PCR) Coronavirus HKU1 (PCR) Coronavirus 229E (PCR) SARS-CoV-2 (PCR) Coronavirus NL63 (PCR) E.chaffeensis DNA (PCR) Hepatitis A IgM Ab Hep Bs Antigen Hep Bs Ag Confirmation Hep B Core IgM Ab Hepatitis C Antibody Cancelled Hepatitis C Ab (EIA) Hep C Ab Signal/Cutoff Human Metapneumovir PCR Influenza Type A (PCR) Influenza Type B (PCR) M. pneumoniae (PCR) Parainfluenza 1 (PCR) Parainfluenza 2 (PCR) Parainfluenza 3 (PCR) Parainfluenza 4 (PCR) RSV (PCR) Entero/Rhino (PCR) 11/06/21 11/07/21 11/07/21 22:58 06:09 06:09 WBC 1.54 L RBC 3.75 L Hgb 11.2 L Hct 32.0 L MCV 85.3 MCH 29.9 MCHC 35.0 RDW Std Deviation 36.6 RDW Coeff of Samantha 11.8 Plt Count 92 L MPV 11.9 Immature Gran % (Auto) Neut % (Auto) Lymph % (Auto) [place] % (Auto) Eos % (Auto) Baso % (Auto) Neut # (Auto) Lymph # (Auto) [place] # (Auto) Eos # (Auto) Baso # (Auto) Immature Gran # (Auto) Neutrophils % (Manual) 47 Lymphocytes % (Manual) 37 Reactive Lymphs % (Man) 13 Monocytes % (Manual) 3 Neutrophils # (Manual) 0.72 L Total Absolute Neuts 0.72 L* Lymphocytes # (Manual) 0.57 L Reactive Lymphs # 0.20 Total Abs Lymphocytes 0.77 L Monocytes # (Manual) 0.05 L Platelet Estimate Giant Platelets RBC Morphology Unremarkable Peripher Smr Path Cons ESR PT INR Fibrinogen Sodium 140 Potassium 3.5 Chloride 107 Carbon Dioxide 25 Anion Gap 8 BUN 7 Creatinine 0.54 L Est Cr Clr Drug Dosing 87.1 Est GFR ( Amer) 117.2 Est GFR (Non-Af Amer) 101.1 BUN/Creatinine Ratio 13.0 Glucose 98 Estimat Average Glucose Hemoglobin A1c Calcium 8.3 L Ionized Calcium Phosphorus 2.4 L Magnesium 1.8 Iron 44 Transferrin 196 L Total Bilirubin 0.6 AST 241 H ALT 216 H Alkaline Phosphatase 85 Total Protein 6.4 Albumin 3.8 Globulin 2.6 Albumin/Globulin Ratio 1.5 Triglycerides 183 H Cholesterol 158 LDL Cholesterol, Calc 68 VLDL Cholesterol, Calc 37 H HDL Cholesterol 53 Cholesterol/HDL Ratio 3.0 Vitamin B12 Folate Procalcitonin TSH Serum Copper Adenovirus (PCR) Anaplasma Smear Babesia Smear B. pertussis DNA (PCR) B.parapertussis DNA PCR C. pneumoniae DNA (PCR) Coronavirus OC43 (PCR) Coronavirus HKU1 (PCR) Coronavirus 229E (PCR) SARS-CoV-2 (PCR) Coronavirus NL63 (PCR) E.chaffeensis DNA (PCR) Hepatitis A IgM Ab Hep Bs Antigen Hep Bs Ag Confirmation Hep B Core IgM Ab Hepatitis C Antibody Hepatitis C Ab (EIA) Pending Hep C Ab Signal/Cutoff Pending Human Metapneumovir PCR Influenza Type A (PCR) Influenza Type B (PCR) M. pneumoniae (PCR) Parainfluenza 1 (PCR) Parainfluenza 2 (PCR) Parainfluenza 3 (PCR) Parainfluenza 4 (PCR) RSV (PCR) Entero/Rhino (PCR) 11/07/21 11/07/21 11/07/21 06:09 06:09 06:09 WBC RBC Hgb Hct MCV MCH MCHC RDW Std Deviation RDW Coeff of Samantha Plt Count MPV Immature Gran % (Auto) Neut % (Auto) Lymph % (Auto) [place] % (Auto) Eos % (Auto) Baso % (Auto) Neut # (Auto) Lymph # (Auto) [place] # (Auto) Eos # (Auto) Baso # (Auto) Immature Gran # (Auto) Neutrophils % (Manual) Lymphocytes % (Manual) Reactive Lymphs % (Man) Monocytes % (Manual) Neutrophils # (Manual) Total Absolute Neuts Lymphocytes # (Manual) Reactive Lymphs # Total Abs Lymphocytes Monocytes # (Manual) Platelet Estimate Giant Platelets RBC Morphology Peripher Smr Path Cons ESR PT 10.1 INR 0.9 Fibrinogen Sodium Potassium Chloride Carbon Dioxide Anion Gap BUN Creatinine Est Cr Clr Drug Dosing Est GFR ( Amer) Est GFR (Non-Af Amer) BUN/Creatinine Ratio Glucose Estimat Average Glucose Hemoglobin A1c Calcium Ionized Calcium Phosphorus Magnesium Iron Transferrin Total Bilirubin AST ALT Alkaline Phosphatase Total Protein Albumin Globulin Albumin/Globulin Ratio Triglycerides Cholesterol LDL Cholesterol, Calc VLDL Cholesterol, Calc HDL Cholesterol Cholesterol/HDL Ratio Vitamin B12 895 Folate > 22.30 Procalcitonin TSH Serum Copper Pending Adenovirus (PCR) Anaplasma Smear Babesia Smear B. pertussis DNA (PCR) B.parapertussis DNA PCR C. pneumoniae DNA (PCR) Coronavirus OC43 (PCR) Coronavirus HKU1 (PCR) Coronavirus 229E (PCR) SARS-CoV-2 (PCR) Coronavirus NL63 (PCR) E.chaffeensis DNA (PCR) Hepatitis A IgM Ab Hep Bs Antigen Hep Bs Ag Confirmation Hep B Core IgM Ab Hepatitis C Antibody Hepatitis C Ab (EIA) Hep C Ab Signal/Cutoff Human Metapneumovir PCR Influenza Type A (PCR) Influenza Type B (PCR) M. pneumoniae (PCR) Parainfluenza 1 (PCR) Parainfluenza 2 (PCR) Parainfluenza 3 (PCR) Parainfluenza 4 (PCR) RSV (PCR) Entero/Rhino (PCR) 11/07/21 11/07/21 11/07/21 06:09 06:09 06:09 WBC RBC Hgb Hct MCV MCH MCHC RDW Std Deviation RDW Coeff of Samantha Plt Count MPV Immature Gran % (Auto) Neut % (Auto) Lymph % (Auto) [place] % (Auto) Eos % (Auto) Baso % (Auto) Neut # (Auto) Lymph # (Auto) [place] # (Auto) Eos # (Auto) Baso # (Auto) Immature Gran # (Auto) Neutrophils % (Manual) Lymphocytes % (Manual) Reactive Lymphs % (Man) Monocytes % (Manual) Neutrophils # (Manual) Total Absolute Neuts Lymphocytes # (Manual) Reactive Lymphs # Total Abs Lymphocytes Monocytes # (Manual) Platelet Estimate Giant Platelets RBC Morphology Peripher Smr Path Cons ESR PT INR Fibrinogen Sodium Potassium Chloride Carbon Dioxide Anion Gap BUN Creatinine Est Cr Clr Drug Dosing Est GFR ( Amer) Est GFR (Non-Af Amer) BUN/Creatinine Ratio Glucose Estimat Average Glucose 120 Hemoglobin A1c 5.8 H Calcium Ionized Calcium 1.14 Phosphorus Magnesium Iron Transferrin Total Bilirubin AST ALT Alkaline Phosphatase Total Protein Albumin Globulin Albumin/Globulin Ratio Triglycerides Cholesterol LDL Cholesterol, Calc VLDL Cholesterol, Calc HDL Cholesterol Cholesterol/HDL Ratio Vitamin B12 Folate Procalcitonin TSH Serum Copper Adenovirus (PCR) Anaplasma Smear Babesia Smear B. pertussis DNA (PCR) B.parapertussis DNA PCR C. pneumoniae DNA (PCR) Coronavirus OC43 (PCR) Coronavirus HKU1 (PCR) Coronavirus 229E (PCR) SARS-CoV-2 (PCR) Coronavirus NL63 (PCR) E.chaffeensis DNA (PCR) Hepatitis A IgM Ab Hep Bs Antigen Hep Bs Ag Confirmation Hep B Core IgM Ab Hepatitis C Antibody Hepatitis C Ab (EIA) Pending Hep C Ab Signal/Cutoff Pending Human Metapneumovir PCR Influenza Type A (PCR) Influenza Type B (PCR) M. pneumoniae (PCR) Parainfluenza 1 (PCR) Parainfluenza 2 (PCR) Parainfluenza 3 (PCR) Parainfluenza 4 (PCR) RSV (PCR) Entero/Rhino (PCR) 11/07/21 11/07/21 11:23 11:23 WBC RBC Hgb Hct MCV MCH MCHC RDW Std Deviation RDW Coeff of Samantha Plt Count MPV Immature Gran % (Auto) Neut % (Auto) Lymph % (Auto) [place] % (Auto) Eos % (Auto) Baso % (Auto) Neut # (Auto) Lymph # (Auto) [place] # (Auto) Eos # (Auto) Baso # (Auto) Immature Gran # (Auto) Neutrophils % (Manual) Lymphocytes % (Manual) Reactive Lymphs % (Man) Monocytes % (Manual) Neutrophils # (Manual) Total Absolute Neuts Lymphocytes # (Manual) Reactive Lymphs # Total Abs Lymphocytes Monocytes # (Manual) Platelet Estimate Giant Platelets RBC Morphology Peripher Smr Path Cons ESR PT INR Fibrinogen Sodium Potassium Chloride Carbon Dioxide Anion Gap BUN Creatinine Est Cr Clr Drug Dosing Est GFR ( Amer) Est GFR (Non-Af Amer) BUN/Creatinine Ratio Glucose Estimat Average Glucose Hemoglobin A1c Calcium Ionized Calcium Phosphorus Magnesium Iron Transferrin Total Bilirubin AST ALT Alkaline Phosphatase Total Protein Albumin Globulin Albumin/Globulin Ratio Triglycerides Cholesterol LDL Cholesterol, Calc VLDL Cholesterol, Calc HDL Cholesterol Cholesterol/HDL Ratio Vitamin B12 Folate Procalcitonin TSH Serum Copper Adenovirus (PCR) Anaplasma Smear Babesia Smear B. pertussis DNA (PCR) B.parapertussis DNA PCR C. pneumoniae DNA (PCR) Coronavirus OC43 (PCR) Coronavirus HKU1 (PCR) Coronavirus 229E (PCR) SARS-CoV-2 (PCR) Coronavirus NL63 (PCR) E.chaffeensis DNA (PCR) Pending Hepatitis A IgM Ab Pending Hep Bs Antigen Pending Hep Bs Ag Confirmation Pending Hep B Core IgM Ab Pending Hepatitis C Antibody Hepatitis C Ab (EIA) Pending Hep C Ab Signal/Cutoff Pending Human Metapneumovir PCR Influenza Type A (PCR) Influenza Type B (PCR) M. pneumoniae (PCR) Parainfluenza 1 (PCR) Parainfluenza 2 (PCR) Parainfluenza 3 (PCR) Parainfluenza 4 (PCR) RSV (PCR) Entero/Rhino (PCR) PG Care Time/CCT Total # of Minutes Spent Total Time Spent with Patient: Total time spent is greater than 50% in coordination of care (as documented) at patient's floor/unit and/or counseling patient: Coding Level of Care Code 35185 Subseq Hosp Care Lvl 2 Diagnoses Fever R50.9 Neutropenia D70.9 Neutropenia type: unspecified Thrombocytopenia D69.6 Elevated liver enzymes R74.8 (1) Neutropenia Neutropenia type: unspecified Qualified Code(s): D70.9 - Neutropenia, unspecified
--- NOTE | 2021-11-07 18:44 | Electrocardiogram Report ---
Test Reason : Blood Pressure : / mmHG Vent. Rate : 070 BPM Atrial Rate : 070 BPM P-R Int : 174 ms QRS Dur : 100 ms QT Int : 388 ms P-R-T Axes : 066 057 057 degrees QTc Int : 419 ms Normal sinus rhythm Nonspecific T wave abnormality Abnormal ECG No previous ECGs available Confirmed by Benjamin Palomo ([id number]) on 11/07/2021 6:44:09 PM Referred By: REFERRED SELF Confirmed By:Rico Palomo
--- NOTE | 2021-11-08 03:26 | Billing Data ---
Date of Service November 08, 2021 Coding Level of Care Code 06088 Initial Inpt Care Lvl 3
--- NOTE | 2021-11-08 03:27 | Consultation Report ---
DATE OF SERVICE: 11/07/2021. REASON FOR CONSULTATION: Fever and pancytopenia of unclear etiology. HISTORY OF PRESENT ILLNESS: Ms. 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 Workup obtained by her PCP including a COVID test and chest x-ray were both negative. CBC obtained as an outpatient revealed pancytopenia with white cell count of 1.27, absolute neutrophi l count of 530, hemoglobin of 11.2, hematocrit of 31.5 with MCV of 84.7, platelet count of 82,000. V iral panel was negative and she was found to have equivocal Lyme IgM level for which she was started on doxycycline. She indicates that since starting doxycycline, she has not had any more fevers and f eels back to her usual self. She states that body aches have also resolved. Denies night sweats, si gnificant weight loss, chest pain, shortness of breath, abdominal pain, or any other issues. ALLERGIES: PENICILLINS. HOME MEDICATIONS: 1. Ferrous sulfate 325 mg p.o. daily. 2. Loratadine 10 mg p.o. daily. 3. Tylenol as needed. 4. Vitamin C 500 mg p.o. daily. 5. Calcium carbonate supplementation daily. 6. Multivitamin 1 tablet p.o. daily. PAST MEDICAL HISTORY: Asthma. PAST SURGICAL HISTORY: 1. History of hysterectomy with oophorectomy. 2. History of cholecystectomy. 3. History of tonsillectomy. FAMILY HISTORY: Significant for lymphoma in her maternal aunt and multiple myeloma in her father. SOCIAL HISTORY: Denies smoking. Drinks alcohol occasionally and denies illicit drug use. REVIEW OF SYSTEMS: Unremarkable except as noted above. PHYSICAL EXAMINATION: Unremarkable. LABORATORY DATA: Significant for CBC on 11/07/2021, significant for white count of 1.54, hemoglobin 11.2, hematocrit of 32.0, platelet count of 92,000, ANC of 720. Chemistry: Sodium 140, potassium 3. 5, chloride 107, bicarbonate 25, anion gap of 8, BUN 7, creatinine 0.54, calcium 8.3, phosphorus 2.4, magnesium 1.8. Iron 144, transferrin 196, total bilirubin 0.6, AST 241, ALT 216, vitamin B12 level 895, folate 22.3, fibrinogen 345. PT 10.1, INR 1.0. 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 ASSESSMENT AND PLAN: 1. Pancytopenia, likely due to tick-borne illness. 2. Pancytopenia: A very pleasant 61-year-old female who presented with fever and myalgias with labo ratory testing concerning for tick-borne illness. Peripheral smear review by pathology did not revea l any blasts or evidence to suggest underlying hematologic malignancy such as leukemia. 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 Th e patient's clinical symptoms have significantly improved with doxycycline and her labs from today sh owed slight improvement in leukopenia as well as thrombocytopenia, indicating treatment response as w ell. No indication at this time to suspect that she has underlying hematologic malignancy. Pancytop enia, most likely due to bone marrow suppression from underlying infection. We would expect counts t o normalize in the next 1 to 2 weeks. If the patient is discharged home prior to normalization of co unts, would be happy to see her in Hematology Clinic for followup, at which time if counts have not i mproved, may consider obtaining a bone marrow biopsy then. Thank you for this consult. Hematology will sign off at this time. To follow up with the patient in clinic if needed. Feel free to call if you have any further questions. Job ID: [id number]
[2021-11-08 07:18] LABS: Hematocrit (blood only) 32.1 % (34.1-44.9); Hemoglobin 11.3 g/dl (12.0-16.0); Mean Corpuscular Hemoglobin 30.1 pg (25.0-34.0); Mean Corpuscular Hgb Conc 35.2 g/dL (32.0-36.0); Mean Corpuscular Volume 85.4 fL (80.0-100.0); Mean Platelet Volume 11.3 fL (9.4-12.3); Platelet Count 125 K/uL (130-400); RDW Coefficient of Variation 11.7 % (11.5-14.5); RDW Standard Deviation 36.6 fL (36.4-46.3); Red Blood Count 3.76 M/uL (3.93-5.22); White Blood Count 3.23 K/ul (4.8-10.8)
[2021-11-08 07:25] LABS: Albumin Globulin Ratio 1.5 (0.9-2); Albumin Level 3.8 gm/dl (3.4-5.0); Bilirubin,Total 0.5 mg/dl (0.2-1.0); Calcium 8.8 mg/dl (8.5-10.1); Creatinine Clr Calc Pharmacy 81.1 ml/min; Est GFR (African American) 114.5 ml/min; Est GFR (Non-African American) 98.8 ml/min; Globulin 2.6 gm/dl (2.5-4.0); Potassium 3.7 mmol/L (3.5-5.1); Total Protein 6.4 gm/dl (6.0-8.3)
[2021-11-08 07:49] LABS: ALC (manual) 2.16 K/uL (1.2-3.4); ANC (manual) 0.68 K/uL (1.4-6.5); Echinocytes 1+; Eosinophils # (manual) 0.03 K/uL (0-0.50); Eosinophils % (manual) 1 %; Lymphocytes # (manual) 1.62 K/uL (1.2-3.4); Lymphocytes % (manual) 50 %; Monocytes # (manual) 0.39 K/uL (0.24-0.82); Monocytes % (manual) 12 %; Neutrophils # (manual) 0.68 K/uL (1.4-6.5); Neutrophils % (manual) 21 %; Reactive Lymphocytes # (manual) 0.55 K/uL; Reactive Lymphocytes % (manual) 17 %
[2021-11-08] MEDS: ENOXAPARIN INJ 40 MG/0.4 ML SYR SQ SCH (08:15)
[2021-11-08] MEDS: LORATADINE 10 MG TAB PO SCH (08:18)
[2021-11-08 08:21] LABS: HBSAG NON-REACTIVE (NON-REACTIVE); Hepatitis A Antibody IgM NON-REACTIVE (NON-REACTIVE); Hepatitis B Core Antibody IgM NON-REACTIVE (NON-REACTIVE)
[2021-11-08] MEDS ORDERED: DOXYCYCLINE HYCLATE 100 MG CAP PO SCH (09:00)
--- NOTE | 2021-11-08 10:35 | Discharge Summary ---
Date of Service November 08, 2021 Admission HPI Per Admitting Provider 61yo female with a history of asthma presents with a five-day history of fever, chills, muscle aches, and headache. Symptoms began gradually. Patient has had an intermittent fever which resolves with tylenol; Tmax 102.8. Patient saw her PCP two days ago (on 11/04) for the above symptoms; PCP ordered a covid test, and when that was negative, ordered a CXR which was also negative. Patient was prescribed azithromycin due to suspicion for atypical pneumonia, of which she has taken 500mg yesterday and 250mg this morning. Symptoms have not improved. Outpatient labs obtained earlier in the day were notable for leukopenia (1.52), mild anemia (11.9), and thrombocytopenia (77); patient was referred to the ED as a result. Patient notes her symptoms are relatively unchanged from the past few days. Headache is mild, currently only a 2/10 to 3/10. Patient denies vision changes, CP, palpitations, SOB, edema, abdominal pain, nausea, vomiting, dysuria, hematochezia, lightheadedness, dizziness, numbness, tingling, or other symptoms. Denies recent illness prior to the past week, denies recent travel. Denies known tick bites, though [place] and has had some possible exposures over the past few weeks. Denies unintentional weight loss. Patient does report a lifetime history of easy bruising, but no history of zihytjuuu-ni-zseiwcw bleeding. No personal history of malignancy, though patient does note a family history of multiple myeloma (father), and an aunt with "a cancer of the lymph nodes"; no other family history of malignancy. Patient suspects her mother might have rheumatoid arthritis but is unaware of any other family history of autoimmune conditions. Patient drinks alcohol 2-3 times per month, about two glasses of wine each time. Patient is a never-smoker and denies other recreational substance use. Denies herbal supplement use. Upon arrival to the ED, vitals were stable, patient was afebrile, and SpO2 was adequate on room air. Initial labs were notable for moderate leukopenia (1.27), moderate neutropenia (ANC 529), mild anemia (11.2), thrombocytopenia (82), hypokalemia (3.1), and elevations in AST (153) and ALT (136). Serum magnesium, Tbili, alk phos, INR, ESR, and TSH all normal. In the ED, patient was given NSS bolu 1L (x1) and started on empiric doxycycline. Surrogate decision-maker in case of an emergency: Sohail Vaughan (cell: [phone]) Principal Diagnosis Anaplasmosis Discharge Exam No acute distress No right upper quadrant tenderness Looks very well Vital Signs Temp Pulse Resp BP Pulse Ox O2 Del Method 11/08/21 07:39 36.7 C 64 16 112/71 98 Room Air 11/07/21 22:05 37 C 73 16 105/70 96 Room Air 11/07/21 16:01 36.8 C 67 16 104/67 99 Intake and Output 11/07/21 11/08/21 11/08/21 22:59 06:59 14:59 Intake Total 610 / 1706.667 Balance 610 / 406.667 Intake: IV 110 / 1206.667 Doxycycline Hyclate 100 mg In 110 / 220 Dextrose 5% 100 ml @ 50 mls/hr IV Q12H [facility] Rx#:[id number] Oral 500 / 500 Other: # Unmeasured Voids 3 Discharge Data Allergies Allergy/AdvReac Type Severity Reaction Status Date / Time Penicillins Allergy Unknown Verified 11/06/21 23:09 Consultations 11/06/21 21:57 ED Decision to Admit Stat 11/07/21 07:00 Consult Hematology Routine Ordered Studies 11/06/21 22:47 US abdomen limited Routine Hospital Course (1) Anaplasmosis: Initially reported negative, then it appears positive but some confusion in the weight was reported; I called lab and confirmedpositive; therefore, diagnosis confirmed; doxycycline for 10 days (2) Pancytopenia: Likely secondary to above, hematology oncology follow-up Repeat counts and CMP with PCP in 1 week (3) Elevated liver enzymes: Still uptrend but likely simply taking time-repeat as outpatient Plan Recommended she stay off work till absolute neutrophil count more than 1000 and avoid contact with people, particularly sick people till absolute neutrophil count more than 1000 Total Time Total Time Spent Total Time Spent (In Minutes): 32 Discharge Plan Discharge Items Patient Disposition: Home - Self-Care Reason For Visit: FEVER, PANCYTOPENIA Discharge Diagnosis: Anaplasmosis Condition on Discharge: Fair Activity: As commented below Activity Comment: avoid contact with sick people and avoid going out till counts improve Non-emergency contact: Primary Care Provider and Oncologist Call non-emergency contact if: your symptoms worsen Follow-up/Referrals: Chilango Oropeza DO [Primary Care Provider] - Fabiola Tyler MD [Physician] - (In 2 weeksseen in house) Diet: Regular Addtl Attending Provider Instructions: Do not resume work till your absolute neutrophil count is more than 1000 Check your complete blood count and differential and complete metabolic profile with your primary care provider in about 5 to 7 days Avoid contact with people, particularly sick people, till your absolute neutrophil count is more than 1000 Pending Studies at Discharge: Yes Studies:: Tickborne illness studies Stand-Alone Forms: My [facility] [employer], Smoking Cessation Medications and DC Order Prescriptions: New doxycycline hyclate 100 mg Capsule 100 mg PO BID Qty: 19 0RF Continued ferrous sulfate 325 mg (65 mg iron) tablet 325 mg PO DAILY Qty: 90 3RF loratadine 10 mg tablet 10 mg PO DAILY Qty: 90 3RF multivitamin Tablet 1 tab PO DAILY ascorbic acid (vitamin C) [Vitamin C] 250 mg Tablet 500 mg PO DAILY albuterol sulfate [Ventolin HFA] 90 mcg/actuation Hfa Aerosol Inhaler 2 puff INHALATION Q6H PRN (Reason: Shortness Of Breath Or Wheezing) calcium carbonate-vitamin D3 600 mg(1,500mg) -200 unit tablet 1 tab PO DAILY omega-3 fatty acids 1,250 mg capsule 2,500 mg PO QAM acetaminophen [Tylenol Extra Strength] 500 mg Tablet 1,000 mg PO Q6 PRN (Reason: Fever) Discontinued azithromycin 250 mg tablet See Rx Instructions PO .COMPLEX Qty: 6 0RF Rx Instructions: For 250 mg dose pack: take 500 mg today (day 1), then 250 mg for 4 days (days 2-5) PO Discharge Orders: Discharge Order (Routine); Ordered 11/08/21 Ordered By: Tameka Calvin Admission Data Admit Date/Time: 11/06/21 23:38 Attending Provider: Tameka Calvin Admit Provider: Hong Bhakta Primary Care Provider: Chilango Oropeza Other Providers: Huy Anderson ; Fabiola Tyler Coding Level of Care Code D/C DAY MANAGEMENT >30 MINS Diagnoses Anaplasmosis A77.49 Pancytopenia D61.818 Elevated liver enzymes R74.8
[2021-11-13 01:06] LABS: Ehrlichia chaff DNA Bld Negative (Negative)
== END 2021-11-08 11:45 | disposition home or self-care (01) | DRG 868 ==
LOC: ED 20:01 → 3E 23:38 → SUATTDRO 23:38 → 3E 11-07 00:21
DX: E87.6 Hypokalemia; R74.01 Elevation of levels of liver transaminase levels; Z88.0 Allergy status to penicillin; D61.818 Other pancytopenia; A77.49 Other ehrlichiosis; Z82.49 Family history of ischemic heart disease and other diseases of the circulatory system; J45.909 Unspecified asthma, uncomplicated; Z82.3 Family history of stroke